=== PATIENT | male | born 1985 | race Caucasian/White ===

== ENCOUNTER → 2021-11-04 | Outpatient (CLI) | payer OTHER ==
[~2021-11-04] MED LIST: ACCUNEB SO1.25 MG/1 INH; DOXYCYCLINE 10100 MG PO; EFFEXOR XR75 MG PO; IBUPROFEN 800800 M1 PO; MOBIC15 MG PO; NORVASC5 MG PO; PERCOCET PO; PREVACID30 MG PO; SENNA PO; VENLAFAXIN75 MG/1 T2 PO; VENTOLIN HFA 1818 GM INH; VICODIN 5-3001 EACH PO; ZYRTEC10 MG PO
== END | disposition home or self-care (01) ==
LOC: SJCVCIMAG 09:46
PROVIDERS: ATTEND Internal Medicine
DX: R00.2 Palpitations (principal); E78.5 Hyperlipidemia, unspecified; I10 Essential (primary) hypertension; K21.9 Gastro-esophageal reflux disease without esophagitis; J45.909 Unspecified asthma, uncomplicated; Z79.899 Other long term (current) drug therapy